=== PATIENT | female | born 1975 | race Hispanic/Latino ===

== ENCOUNTER → 2025-05-06 | Day surgery (SDC) | payer OTHER ==
[~2025-05-06] MED LIST: GLUCAGON FOR INJ 1 MG VIAL ONE; HYOSCYAMINE SULFATE 0.5 MG/ML INJ ONE; LIDOCAINE HCL 2% LOCAL INJ 5 ML SDV VIAL INJ ONE; LOSARTAN POTASS25 MG PO; MELATONIN3 MG PO; OSTEO BI-FLEX1 EAC4 PO; PROPOFOL IV EMULSION 10 MG/ML 20 ML VIAL ONE
[2025-05-06] MEDS: LACTATED RINGER'S 1,000 ML ONE (06:44)
[2025-05-06 08:37] VITALS: TEMP 97.4
[2025-05-06 09:10] VITALS: BP 114/79; PULSE 75; RESP 16; O2SAT 100
== END | disposition home or self-care (01) ==
LOC: OR 05:50
PROVIDERS: ATTEND Internal Medicine Gastroenterology
DX: Z12.11 Encounter for screening for malignant neoplasm of colon (principal); I10 Essential (primary) hypertension; K21.9 Gastro-esophageal reflux disease without esophagitis; Z01.810 Encounter for preprocedural cardiovascular examination; Z01.818 Encounter for other preprocedural examination
CPT/HCPCS: 45378; 81025; 93005; J1610; J1980; J2003; J2704; J7121